=== PATIENT | male | born 1955 | race Caucasian/White ===

== ENCOUNTER 2022-02-03 02:37 | Emergency (ER) | payer MEDICARE ==
[2022-02-03 03:53] LABS: SARS-CoV-2 NAA Rapid Test Not Detected (NotDetected)
== END 2022-02-03 04:18 | disposition home or self-care (01) ==
LOC: ERS 02:37
DX: B34.9 Viral infection, unspecified (principal); Z20.822 Contact with and (suspected) exposure to COVID-19
CPT/HCPCS: 99283